=== PATIENT | female | born 1950 | race Native Hawaiian/Other Pacific Islander ===

== ENCOUNTER 2017-08-20 12:32 | Inpatient (IN) | payer OTHER, MEDICARE ==
--- NOTE | 2017-08-20 12:39 | C.PDOC ---
History Of Present Illness 66 Y/O FEMALE REFERRED BY DR. ARCE FOR NEW ONSET A-FLUTTER. PATIENT WITH INTERMITTENT PALPITATIONS FOR 1 WEEK WITH ASSOCIATED SOB AND GENERALIZED WEAKNESS. PER DR ARCE, PT HYPOTENSIVE ON INITIAL EVALUATION. DENIES ANY OTHER COMPLAINTS. EXAM MILD DISTRESS LUNGS CTA CV RRR TACHY SKIN COLD AND CLAMMY Time Seen by Provider: 08/20/17 12:38 Chief Complaint (Nursing): Palpitations History Per: Patient History/Exam Limitations: no limitations Onset/Duration Of Symptoms: Days Current Symptoms Are (Timing): Still Present Associated Symptoms: denies: Chest Pain, Headache Recent travel outside of the [place]: No Past Medical History Reviewed: Historical Data, Nursing Documentation, Vital Signs Family History: States: Unknown Family Hx Review Of Systems Except As Marked, All Systems Reviewed And Found Negative. Constitutional: Positive for: Weakness. Negative for: Fever, Chills Cardiovascular: Positive for: Palpitations. Negative for: Chest Pain Respiratory: Positive for: Shortness of Breath. Negative for: Wheezing Gastrointestinal: Negative for: Nausea, Vomiting, Abdominal Pain Skin: Negative for: Rash Neurological: Negative for: Headache, Dizziness Physical Exam - Physical Exam Appears: Non-toxic, Other (MILD DISTRESS) Skin: Other (COLD AND CLAMMY) Head: Atraumatic, Normacephalic Oral Mucosa: Moist Chest: Symmetrical Cardiovascular: Rhythm Regular (TACHY) Respiratory: Normal Breath Sounds, No Accessory Muscle Use, No Rales, No Rhonchi , No Wheezing Gastrointestinal/Abdominal: Soft, No Tenderness, No Guarding, No Rebound Back: Normal Inspection Extremity: Normal ROM, Capillary Refill (< 2 SEC.) Neurological/Psych: Oriented x3, Normal Speech, Normal Cognition ED Course And Treatment ECG: Interpreted By Me ECG Rhythm: Atrial Flutter ECG Interpretation: Abnormal Rate From EC Progress - Re-Evaluation Re-evaluation Note: 08/20/17 12:39 D/W DR ARCE WILL CONSULT. ADMIT PMD 08/20/17 12:41 CARDIZEM, IVFs GIVEN. LABS, EKG ORDERED AND REVIEWED. 08/20/17 12:49 D/W DR ZABALA AWARE OF ER FINDINGS WILL ADMIT. PENDING LABS - Data Reviewed Data Reviewed: Lab, Diagnostic imaging, EKG, Old records - Critical Care Citical Care: Excluding Proc Time Critical Care Time: 90 minutes - Continuity of Care Discussed patient case with:: Patient, PMD Discussed pt. case with business process consultant/specialty: Cardiology Disposition Counseled Patient/Family Regarding: Studies Performed, Diagnosis - Disposition Disposition: HOSPITALIZED Disposition Time: 12:54 Condition: STABLE Forms: [facility] (Portuguese) - POA Present On Arrival: None - Clinical Impression Clinical Impression: New onset atrial flutter, Hypotension, Atrial flutter with rapid ventricular response - Scribe Statement The provider has reviewed the documentation as recorded by the Scribe SM All medical record entries made by the Scribe were at my direction and personally dictated by me. I have reviewed the chart and agree that the record accurately reflects my personal performance of the history, physical exam, medical decision making, and the department course for this patient. I have also personally directed, reviewed, and agree with the discharge instructions and disposition. Decision To Admit - Pt Status Changed To: Hospital Disposition Of: Inpatient - Admit Certification Admit to Inpatient:: After my assessment, the patient will require hospitalization for at least two midnights. This is because of the severity of symptoms shown, intensity of services needed, and/or the medical risk in this patient being treated as an outpatient. - InPatient: Physician Admission Certification: I certify that this patient requires 2 or more midnights of care for the following reason:: SEE NOTE - . Bed Request Type: Telemetry Admitting Physician: No Watson Patient Diagnosis: New onset atrial flutter, Hypotension
[2017-08-20] MEDS ORDERED: Sodium Chloride 0.9% 500 ML IV ONE (12:41)
[2017-08-20] MEDS ORDERED: Sodium Chloride 0.9% 1,000 ML IV ONE (12:41)
[2017-08-20 13:06] LABS: EOS # 0.1 K/uL (0.0-0.7); EOS % 3.1 % (0.0-4.0); HEMATOCRIT 36.4 % (34.0-47.0); LYMPH # 1.5 K/uL (1.0-4.3); LYMPH % 35.3 % (20.0-40.0); MEAN CORPUSCULAR HEMOGLOBIN 30.2 pg (27.0-31.0); MEAN CORPUSCULAR HGB CONC 33.4 g/dL (33.0-37.0); MEAN PLATELET VOLUME 9.4 fL (7.2-11.7); MONO # 0.6 K/uL (0.0-0.8); MONO % 13.4 % (0.0-10.0); NRBC % 0.2 % (0.0-2.0); RED CELL DISTRIBUTION WIDTH 12.3 % (11.5-14.5); WHITE BLOOD COUNT 4.4 K/uL (4.8-10.8)
[2017-08-20 13:07] LABS: MEAN CELL VOLUME 90.4 fL (81.0-99.0)
[2017-08-20 13:11] LABS: CHLORIDE 108 mmol/L (98-107); POTASSIUM 3.8 mmol/L (3.6-5.2); SODIUM 144 mmol/L (132-148)
[2017-08-20 13:14] LABS: ALB/GLOB RATIO 1.1 (1.0-2.1); ALKALINE PHOSPHATASE 124 U/L (38-126); ALT/SGPT 67 U/L (9-52); AST/SGOT 67 U/L (14-36); BILIRUBIN,TOTAL 0.7 mg/dL (0.2-1.3); BLOOD UREA NITROGEN 14 mg/dL (7-17); CARBON DIOXIDE 25 mmol/L (22-30); GFR AFRICAN-AMERICAN > 60; GLUCOSE,RANDOM 135 mg/dL (65-105); TOTAL PROTEIN 6.9 g/dL (6.3-8.3)
[2017-08-20 13:15] LABS: CALCIUM 9.4 mg/dl (8.6-10.4)
[2017-08-20] MEDS ORDERED: Heparin25000 units/250ml 1/2NS 25,000 UNITS/250 ML BAG IV PRN ×4 (13:29→16:00)
--- NOTE | 2017-08-20 14:22 | RAD ---
PROCEDURE: CHEST RADIOGRAPH, 1 VIEW HISTORY: Palpations COMPARISON: None available. FINDINGS: LUNGS: The lungs are well inflated and clear. PLEURA: No pneumothorax or pleural fluid seen. CARDIOVASCULAR: Normal. OSSEOUS STRUCTURES: No significant abnormalities. VISUALIZED UPPER ABDOMEN: Normal. OTHER FINDINGS: None. IMPRESSION: No active pulmonary disease.
[2017-08-20 14:48] LABS: MAGNESIUM 1.7 mg/dL (1.6-2.3); PHOSPHOROUS 3.9 mg/dL (2.5-4.5)
[2017-08-20 15:20] LABS: THYROID STIMULATING HORMONE < 0.02 mIU/L (0.46-4.68)
--- NOTE | 2017-08-20 16:30 | CP.PCM.CON ---
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 Patient noticed increasing shortness of breath and left leg edema starting 3 weeks ago. She made an appointment with account underwriter Dr Malhotra who advised her to get an echo and ekg prior to appointment. Today patient was getting Echo and noticed palpitations, tremor and HR in 120s. An ekg was done which showed rhythm of A-Flutter. Patient then ran into Dr Malhotra on the floors and showed him the ekg strip, Dr Malhotra immediately directed patient to ED. In ED she received Cardizem 10mg ivp once. PMD: Dr Milan PMHx: HLD; Hep C (in remission w/o treatment) PSHx: denies Home Medications: atorvastatin 3x a week (does not take everyday due to myalgias ) Social: denies smoking, denies drinking FamHx: Father -> HTN, DM; Mother -> asthma Review of Systems - Constitutional Constitutional: Headache - EENT Eyes: absent: Blurred Vision - Cardiovascular Cardiovascular: absent: Chest Pain, Palpitations - Respiratory Respiratory: absent: Dyspnea, Wheezing - Gastrointestinal Gastrointestinal: absent: Bloating, Constipation, Diarrhea, Nausea - Genitourinary Genitourinary: absent: Difficulty Urinating, Dysuria - Musculoskeletal Musculoskeletal: absent: Arthralgias, Numbness - Integumentary Integumentary: absent: Rash - Neurological Neurological: Headaches. absent: Confusion, Dizziness Past Patient History - Past Medical History & Family History Past Medical History?: Yes - Past Social History Smoking Status: Never Smoked - CARDIAC Hx Cardiac Disorders: Yes Hx Hypercholesterolemia: Yes Hx Hypotension: Yes - PULMONARY Hx Respiratory Disorders: No - NEUROLOGICAL Hx Neurological Disorder: No - HEENT Hx HEENT Problems: No - RENAL Hx Chronic Kidney Disease: No - ENDOCRINE/METABOLIC Hx Endocrine Disorders: No - HEMATOLOGICAL/ONCOLOGICAL Hx Blood Disorders: Yes Hx Hepatitis C: Yes - INTEGUMENTARY Hx Dermatological Problems: No - MUSCULOSKELETAL/RHEUMATOLOGICAL Hx Musculoskeletal Disorders: No Hx Falls: No - GASTROINTESTINAL Hx Gastrointestinal Disorders: No - GENITOURINARY/GYNECOLOGICAL Hx Genitourinary Disorders: No - PSYCHIATRIC Hx Psychophysiologic Disorder: No Hx Substance Use: No - SURGICAL HISTORY Hx Surgeries: No - ANESTHESIA Hx Anesthesia: No Hx Anesthesia Reactions: No Hx Malignant Hyperthermia: No Has any member of the family had a problem w/ anesthesia?: No Meds Allergies/Adverse Reactions: Allergies Allergy/AdvReac Type Severity Reaction Status Date / Time No Known Allergies Allergy Verified 08/20/17 12:40 - Medications Medications: Current Medications Acetaminophen (Tylenol 325mg Tab) 650 mg PO Q6 PRN PRN Reason: Headache Diltiazem HCl 125 mg/ Dextrose 125 mls @ 5 mls/hr IV .Q24H [facility] PRN Reason: 5 MG/HR Last Admin: 08/20/17 14:57 Dose: 5 mls/hr Heparin Sodium/Sodium Chloride (Heparin 64950 Units/250ml 1/2 Normal Saline) 25 ,000 units in 250 mls @ 6.532 mls/hr IV .Q24H PRN; Protocol; 12 UNITS/KG/HR PRN Reason: PROTOCOL Pneumococcal Polyvalent Vaccine (Pneumovax 23 Vaccine) 0.5 ml IM .ONCE ONE Stop: 08/22/17 10:01 Physical Exam - Constitutional Appears: Well, Non-toxic, No Acute Distress - Head Exam Head Exam: ATRAUMATIC, NORMAL INSPECTION - Eye Exam Eye Exam: EOMI Pupil Exam: PERRL - ENT Exam ENT Exam: Mucous Membranes Moist - Respiratory Exam Respiratory Exam: Clear to Auscultation Bilateral. absent: Rales, Rhonchi, Wheezes - Cardiovascular Exam Cardiovascular Exam: Tachycardia, REGULAR RHYTHM, RRR, +S1, +S2 - GI/Abdominal Exam GI & Abdominal Exam: Normal Bowel Sounds, Soft. absent: Distended, Tenderness - Rectal Exam Rectal Exam: Deferred - Extremities Exam Extremities exam: Positive for: normal inspection, pedal edema. Negative for: calf tenderness - Neurological Exam Neurological exam: Alert, CN II-XII Intact, Normal Gait, Oriented x3 - Skin Skin Exam: Dry, Intact, Normal Color, Warm Results - Vital Signs Recent Vital Signs: Last Vital Signs Temp 98.4 F 08/20/17 14:30 Pulse 125 H 08/20/17 16:00 Resp 23 08/20/17 16:00 BP 118/74 08/20/17 15:14 Pulse Ox 96 08/20/17 16:00 - Labs Result Diagrams: 08/20/17 13:00 08/20/17 13:00 Labs: Laboratory Results - last 24 hr 08/20/17 08/20/17 08/20/17 13:00 13:00 13:00 WBC 4.4 L RBC 4.02 Hgb 12.2 Hct 36.4 MCV 90.4 D MCH 30.2 MCHC 33.4 RDW 12.3 Plt Count 170 MPV 9.4 Neut % (Auto) 47.2 L Lymph % (Auto) 35.3 [place] % (Auto) 13.4 H Eos % (Auto) 3.1 Baso % (Auto) 1.0 Neut # 2.1 Lymph # 1.5 [place] # 0.6 Eos # 0.1 Baso # 0.0 PT 11.8 INR 1.0 APTT 38 H Sodium 144 Potassium 3.8 Chloride 108 H Carbon Dioxide 25 Anion Gap 15 BUN 14 Creatinine 0.6 L Est GFR ( Amer) > 60 Est GFR (Non-Af Amer) > 60 Random Glucose 135 H Calcium 9.4 Phosphorus Magnesium Total Bilirubin 0.7 AST 67 H ALT 67 H D Alkaline Phosphatase 124 Troponin I < 0.0120 Total Protein 6.9 Albumin 3.7 Globulin 3.2 Albumin/Globulin Ratio 1.1 Thyroxine (T4) Total T3 TSH 3rd Generation 08/20/17 14:38 WBC RBC Hgb Hct MCV MCH MCHC RDW Plt Count MPV Neut % (Auto) Lymph % (Auto) [place] % (Auto) Eos % (Auto) Baso % (Auto) Neut # Lymph # [place] # Eos # Baso # PT INR APTT Sodium Potassium Chloride Carbon Dioxide Anion Gap BUN Creatinine Est GFR ( Amer) Est GFR (Non-Af Amer) Random Glucose Calcium Phosphorus 3.9 Magnesium 1.7 Total Bilirubin AST ALT Alkaline Phosphatase Troponin I Total Protein Albumin Globulin Albumin/Globulin Ratio Thyroxine (T4) 23.0 H Total T3 5.87 H TSH 3rd Generation < 0.02 L Assessment & Plan - Assessment and Plan (Free Text) Assessment: 66 year old F admitted to ICU from ED for A-Flutter. CV: new onset A-Flutter w/ RVR; hemodynamically stable Cardizem drip Heparin drip w/ bolus Troponin negative x1, f/u serial trops f/u lipid panel Endo: elevated T3, T4 Low TSH; T3, T4 elevated GI: elevated AST, ALT Prophylaxis: DVT: heparin drip Diet: Regular Diet GI: not indicated
--- NOTE | 2017-08-20 21:53 | CP.PCM.CON ---
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 Patient noticed increasing shortness of breath and left leg edema starting 3 weeks ago. Today patient was getting Echo and noticed palpitations, tremor and HR in 120s. An ekg was done which showed rhythm of A-Flutter. Patient then ran into me on the floors and showed him the ekg strip, I immediately directed patient to ED. In ED she received Cardizem 10mg ivp once. PMD: Dr Watson PMHx: HLD; Hep C (in remission w/o treatment) PSHx: denies Home Medications: atorvastatin 3x a week (does not take everyday due to myalgias ) Social: denies smoking, denies drinking FamHx: Father -> HTN, DM; Mother -> asthma Review of Systems - Constitutional Constitutional: Headache - EENT Eyes: absent: Blurred Vision - Cardiovascular Cardiovascular: absent: Chest Pain, Palpitations - Respiratory Respiratory: absent: Dyspnea, Wheezing - Gastrointestinal Gastrointestinal: absent: Bloating, Constipation, Diarrhea, Nausea - Genitourinary Genitourinary: absent: Difficulty Urinating, Dysuria - Musculoskeletal Musculoskeletal: absent: Arthralgias, Numbness - Integumentary Integumentary: absent: Rash - Neurological Neurological: Headaches. absent: Confusion, Dizziness Physical Exam - Constitutional Appears: Well, Non-toxic, No Acute Distress - Head Exam Head Exam: ATRAUMATIC, NORMAL INSPECTION - Eye Exam Eye Exam: EOMI Pupil Exam: PERRL - ENT Exam ENT Exam: Mucous Membranes Moist - Respiratory Exam Respiratory Exam: Clear to Auscultation Bilateral. absent: Rales, Rhonchi, Wheezes - Cardiovascular Exam Cardiovascular Exam: Tachycardia, REGULAR RHYTHM, RRR, +S1, +S2 - GI/Abdominal Exam GI & Abdominal Exam: Normal Bowel Sounds, Soft. absent: Distended, Tenderness - Rectal Exam Rectal Exam: Deferred - Extremities Exam Extremities exam: Positive for: normal inspection, pedal edema. Negative for: calf tenderness - Neurological Exam Neurological exam: Alert, CN II-XII Intact, Normal Gait, Oriented x3 - Skin Skin Exam: Dry, Intact, Normal Color, Warm Past Patient History - Past Medical History & Family History Past Medical History?: Yes - Past Social History Smoking Status: Never Smoked - CARDIAC Hx Cardiac Disorders: Yes Hx Hypercholesterolemia: Yes Hx Hypotension: Yes - PULMONARY Hx Respiratory Disorders: No - NEUROLOGICAL Hx Neurological Disorder: No - HEENT Hx HEENT Problems: No - RENAL Hx Chronic Kidney Disease: No - ENDOCRINE/METABOLIC Hx Endocrine Disorders: No - HEMATOLOGICAL/ONCOLOGICAL Hx Blood Disorders: Yes Hx Hepatitis C: Yes - INTEGUMENTARY Hx Dermatological Problems: No - MUSCULOSKELETAL/RHEUMATOLOGICAL Hx Musculoskeletal Disorders: No Hx Falls: No - GASTROINTESTINAL Hx Gastrointestinal Disorders: No - GENITOURINARY/GYNECOLOGICAL Hx Genitourinary Disorders: No - PSYCHIATRIC Hx Psychophysiologic Disorder: No Hx Substance Use: No - SURGICAL HISTORY Hx Surgeries: No - ANESTHESIA Hx Anesthesia: No Hx Anesthesia Reactions: No Hx Malignant Hyperthermia: No Has any member of the family had a problem w/ anesthesia?: No Meds Allergies/Adverse Reactions: Allergies Allergy/AdvReac Type Severity Reaction Status Date / Time No Known Allergies Allergy Verified 08/20/17 12:40 - Medications Medications: Current Medications Acetaminophen (Tylenol 325mg Tab) 650 mg PO Q6 PRN PRN Reason: Headache Diltiazem HCl 125 mg/ Dextrose 125 mls @ 5 mls/hr IV .Q24H [facility] PRN Reason: 5 MG/HR Last Admin: 08/20/17 14:57 Dose: 5 mls/hr Heparin Sodium/Sodium Chloride (Heparin 71709 Units/250ml 1/2 Normal Saline) 25 ,000 units in 250 mls @ 6.532 mls/hr IV .Q24H PRN; Protocol; 12 UNITS/KG/HR PRN Reason: PROTOCOL Methimazole (Tapazole) 20 mg PO TID [facility] Last Admin: 08/20/17 20:22 Dose: 20 mg Pneumococcal Polyvalent Vaccine (Pneumovax 23 Vaccine) 0.5 ml IM .ONCE ONE Stop: 08/22/17 10:01 Results - Vital Signs Recent Vital Signs: Last Vital Signs Temp 98.4 F 08/20/17 14:30 Pulse 92 H 08/20/17 21:00 Resp 18 08/20/17 21:00 BP 117/61 08/20/17 19:15 Pulse Ox 97 08/20/17 21:00 - Labs Result Diagrams: 08/22/17 06:26 08/22/17 06:26 Labs: Laboratory Results - last 24 hr 08/20/17 08/20/17 08/20/17 13:00 13:00 13:00 WBC 4.4 L RBC 4.02 Hgb 12.2 Hct 36.4 MCV 90.4 D MCH 30.2 MCHC 33.4 RDW 12.3 Plt Count 170 MPV 9.4 Neut % (Auto) 47.2 L Lymph % (Auto) 35.3 [place] % (Auto) 13.4 H Eos % (Auto) 3.1 Baso % (Auto) 1.0 Neut # 2.1 Lymph # 1.5 [place] # 0.6 Eos # 0.1 Baso # 0.0 PT 11.8 INR 1.0 APTT 38 H Sodium 144 Potassium 3.8 Chloride 108 H Carbon Dioxide 25 Anion Gap 15 BUN 14 Creatinine 0.6 L Est GFR ( Amer) > 60 Est GFR (Non-Af Amer) > 60 Random Glucose 135 H Calcium 9.4 Phosphorus Magnesium Total Bilirubin 0.7 AST 67 H ALT 67 H D Alkaline Phosphatase 124 Troponin I < 0.0120 Total Protein 6.9 Albumin 3.7 Globulin 3.2 Albumin/Globulin Ratio 1.1 Thyroxine (T4) Total T3 TSH 3rd Generation 08/20/17 08/20/17 08/20/17 14:38 21:09 21:09 WBC RBC Hgb Hct MCV MCH MCHC RDW Plt Count MPV Neut % (Auto) Lymph % (Auto) [place] % (Auto) Eos % (Auto) Baso % (Auto) Neut # Lymph # [place] # Eos # Baso # PT INR APTT 76 H D Sodium Potassium Chloride Carbon Dioxide Anion Gap BUN Creatinine Est GFR ( Amer) Est GFR (Non-Af Amer) Random Glucose Calcium Phosphorus 3.9 Magnesium 1.7 Total Bilirubin AST ALT Alkaline Phosphatase Troponin I 0.0130 Total Protein Albumin Globulin Albumin/Globulin Ratio Thyroxine (T4) 23.0 H Total T3 5.87 H TSH 3rd Generation < 0.02 L Assessment & Plan - Assessment and Plan (Free Text) Assessment: 66 year old F admitted to ICU from ED for A-Flutter/Fib. CV: new onset A-Flutter/Fib w/ RVR; hemodynamically stable Cardizem drip Heparin drip w/ bolus Troponin negative x1, f/u serial trops f/u lipid panel Endo: elevated T3, T4 Low TSH; T3, T4 elevated GI: elevated AST, ALT Prophylaxis: DVT: heparin drip Diet: Regular Diet GI: not indicated
[2017-08-21 03:39] LABS: BASO % 0.8 % (0.0-2.0); EOS # 0.2 K/uL (0.0-0.7); EOS % 4.2 % (0.0-4.0); HEMATOCRIT 34.1 % (34.0-47.0); LYMPH # 1.7 K/uL (1.0-4.3); LYMPH % 33.8 % (20.0-40.0); MEAN CELL VOLUME 89.9 fL (81.0-99.0); MEAN CORPUSCULAR HEMOGLOBIN 30.2 pg (27.0-31.0); MEAN CORPUSCULAR HGB CONC 33.6 g/dL (33.0-37.0); MEAN PLATELET VOLUME 9.9 fL (7.2-11.7); MONO # 0.6 K/uL (0.0-0.8); RED CELL DISTRIBUTION WIDTH 12.2 % (11.5-14.5)
[2017-08-21 03:57] LABS: CHOLESTEROL 97 mg/dL (0-199)
[2017-08-21 04:13] LABS: CHLORIDE 110 mmol/L (98-107)
[2017-08-21 04:14] LABS: POTASSIUM 3.3 mmol/L (3.6-5.2); SODIUM 143 mmol/L (132-148)
[2017-08-21 04:16] LABS: ALKALINE PHOSPHATASE 116 U/L (38-126); ALT/SGPT 60 U/L (9-52); AST/SGOT 51 U/L (14-36); BILIRUBIN,TOTAL 0.9 mg/dL (0.2-1.3); BLOOD UREA NITROGEN 9 mg/dL (7-17); CARBON DIOXIDE 24 mmol/L (22-30); GFR AFRICAN-AMERICAN > 60; TOTAL PROTEIN 6.1 g/dL (6.3-8.3)
[2017-08-21 04:17] LABS: CALCIUM 8.7 mg/dl (8.6-10.4); GLUCOSE,RANDOM 111 mg/dL (65-105)
[2017-08-21 04:34] LABS: T4 20.7 ug/dL (5.5-11.0)
[2017-08-21 04:47] LABS: CORTISOL AM 8.9 ug/dL (4.46-22.7); THYROID STIMULATING HORMONE < 0.02 mIU/L (0.46-4.68)
--- NOTE | 2017-08-21 07:07 | CON ---
ENDOCRINOLOGY CONSULT LOCATION: ICU room #9. HISTORY OF PRESENT ILLNESS: This is a 66-year-old female admitted with sudden onset of palpitations and progressive shortness of breath and evaluated to be in atrial fibrillation and flutter with rapid ventricular response and also supervening marked hyperthyroidism, is being referred now for endocrine evaluation and management. PAST MEDICAL HISTORY: As mentioned above. History of dyslipidemia, currently taking Lipitor at 10 mg every other day as noted. History of hepatitis C with no prior treatment. FAMILY HISTORY: Positive for diabetes and hypertension. SOCIAL HISTORY: The patient has a supportive family. 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 No known substance use. REVIEW OF SYSTEMS: Admits to an insidious onset of generalized body weakness, easy fatigability and tiredness and suboptimal energy level. Also admits to episodic bouts of headaches and dizziness and lightheadedness, worse on the day of admission. Also admits to sudden onset of precordial chest pain and palpitations with progressive shortness of breath, initially on exertion and then at rest with paroxysmal nocturnal dyspnea. Her oral intake has been variable with dyspepsia and hyperdefecation. Also admits to variable oral intake at this time. Moreover, admits to lower extremity swelling and edema. PHYSICAL EXAMINATION GENERAL: This is an average built female, in no apparent distress. VITAL SIGNS: Blood pressure of 118/70, pulse of 120 beats per minute and irregular, temperature 98, respirations 20. Height is 4 feet 11 inches, weight is 122 pounds. HEENT: Head is normocephalic. Eyes, anicteric with pink conjunctivae. Funduscopy not possible at this time. Ears, nose, and throat otherwise normal NECK: Supple. Thyroid gland shows firm thyromegaly which is nontender with no overt palpable nodule at this time with positive thyroid bruits. CHEST: Hyperdynamic precordium. CARDIOPULMONARY: S1 and S2 is rapid and irregular. LUNGS: Clear to auscultation. ABDOMEN: Flat and soft with positive bowel sounds. EXTREMITIES: +1 bipedal edema. Pulses are +2 bilaterally. LABORATORY DATA: The chemistry showed a BUN of 14, sodium 144, potassium 3.8, chloride 108, CO2 of 25, glucose 135, and creatinine 0.6. She has a slightly elevated transaminases. The thyroid level showed a T4 or thyroxine of 23.0 with a TSH of less than 0.02 and a total T3 of 5.87, troponin is less than 0.01, and albumin is 3.7. 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 PLAN OF MANAGEMENT: As discussed with the patient, the staff will start her right away on a high-dose supraphysiologic regimen of Tapazole given as 20 mg p.o. stat tonight followed by Tapazole given as 20 mg p.o. t.i.d. after meals as ordered. We will obtain serum chemistries and supplement accordingly as needed. We will also obtain thyroid medications, i.e., Tapazole as ordered. We will obtain a comprehensive thyroid hormonal profile with a total and free T4, TSH, and also a thyroid peroxidase antibody and a thyroid stimulating immunoglobulin with thyroglobulin panel which were confirmed and in the presence of underlying thyroid autoimmunity. We will also obtain a thyroid ultrasound to fully delineate a thyroid lobe dimensions. We will follow and advise accordingly. Svetlana Mercer MD
--- NOTE | 2017-08-21 08:56 | CP.PCM.HP ---
History of Present Illness - History of Present Illness History of Present Illness: Chief complaint: Flutter-like sensation. History present illness: 65-year-old female with no past medical history, suddenly developed onset of flutter-like sensation in the chest area. She does not have any pain other chest pain. But she claims that the for almost a week she was having slowly worsening shortness of breath, even with a regular activities causes increasing SOB. Some leg swelling also noted. Denies any dizziness, sleeping is not disturbed. Some minimal weight gain also noted. No nausea vomiting or other GI symptoms. Past medical history: Hypertension. Allergies no known drug allergy. 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 Family history noncontributory. Review of systems: Patient is currently having no headache or visual symptoms name of palpitation in the chest, no GI symptoms. Minimal leg swelling noted. 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 Labs reviewed. EKG showing evidence of atrial flutter and fibrillation. Rapid ventricular rate noted. Thyroid hormone abnormality noted. Assessment/recommendation: 66-year-old female, now admitted with a slowly worsening SOB, secondary to possibly atrial flutter and fibrillation. Underlying hormonal condition cannot be ruled out. Endocrinology evaluation, cardiology avulsion. Echocardiogram. Patient is currently on heparin drip Will follow the patient. Present on Admission - Present on Admission Any Indicators Present on Admission: No History of DVT/PE: No History of Uncontrolled Diabetes: No Urinary Catheter: No Decubitus Ulcer Present: No Past Patient History - Past Medical History & Family History Past Medical History?: Yes - Past Social History Smoking Status: Never Smoked - CARDIAC Hx Cardiac Disorders: Yes Hx Hypercholesterolemia: Yes Hx Hypotension: Yes - PULMONARY Hx Respiratory Disorders: No - NEUROLOGICAL Hx Neurological Disorder: No - HEENT Hx HEENT Problems: No - RENAL Hx Chronic Kidney Disease: No - ENDOCRINE/METABOLIC Hx Endocrine Disorders: No - HEMATOLOGICAL/ONCOLOGICAL Hx Blood Disorders: Yes Hx Hepatitis C: Yes - INTEGUMENTARY Hx Dermatological Problems: No - MUSCULOSKELETAL/RHEUMATOLOGICAL Hx Musculoskeletal Disorders: No Hx Falls: No - GASTROINTESTINAL Hx Gastrointestinal Disorders: No - GENITOURINARY/GYNECOLOGICAL Hx Genitourinary Disorders: No - PSYCHIATRIC Hx Psychophysiologic Disorder: No Hx Substance Use: No - SURGICAL HISTORY Hx Surgeries: No - ANESTHESIA Hx Anesthesia: No Hx Anesthesia Reactions: No Hx Malignant Hyperthermia: No Has any member of the family had a problem w/ anesthesia?: No Meds Allergies/Adverse Reactions: Allergies Allergy/AdvReac Type Severity Reaction Status Date / Time No Known Allergies Allergy Verified 08/20/17 12:40 Results - Vital Signs Recent Vital Signs: Last Vital Signs Temp 98.5 F 08/21/17 08:00 Pulse 118 H 08/21/17 08:00 Resp 30 H 08/21/17 08:00 BP 93/64 L 08/21/17 07:35 Pulse Ox 96 08/21/17 08:00 - Labs Result Diagrams: 08/21/17 03:33 08/21/17 03:33 Labs: Laboratory Results - last 24 hr 08/20/17 08/20/17 08/20/17 13:00 13:00 13:00 WBC 4.4 L RBC 4.02 Hgb 12.2 Hct 36.4 MCV 90.4 D MCH 30.2 MCHC 33.4 RDW 12.3 Plt Count 170 MPV 9.4 Neut % (Auto) 47.2 L Lymph % (Auto) 35.3 [place] % (Auto) 13.4 H Eos % (Auto) 3.1 Baso % (Auto) 1.0 Neut # 2.1 Lymph # 1.5 [place] # 0.6 Eos # 0.1 Baso # 0.0 PT 11.8 INR 1.0 APTT 38 H Sodium 144 Potassium 3.8 Chloride 108 H Carbon Dioxide 25 Anion Gap 15 BUN 14 Creatinine 0.6 L Est GFR ( Amer) > 60 Est GFR (Non-Af Amer) > 60 Random Glucose 135 H Hemoglobin A1c Calcium 9.4 Phosphorus Magnesium Total Bilirubin 0.7 GGT AST 67 H ALT 67 H D Alkaline Phosphatase 124 Troponin I < 0.0120 Total Protein 6.9 Albumin 3.7 Globulin 3.2 Albumin/Globulin Ratio 1.1 Triglycerides Cholesterol LDL Cholesterol Direct HDL Cholesterol Free T4 Thyroxine (T4) Total T3 TSH 3rd Generation Cortisol AM Sample 08/20/17 08/20/17 08/20/17 14:38 21:09 21:09 WBC RBC Hgb Hct MCV MCH MCHC RDW Plt Count MPV Neut % (Auto) Lymph % (Auto) [place] % (Auto) Eos % (Auto) Baso % (Auto) Neut # Lymph # [place] # Eos # Baso # PT INR APTT 76 H D Sodium Potassium Chloride Carbon Dioxide Anion Gap BUN Creatinine Est GFR ( Amer) Est GFR (Non-Af Amer) Random Glucose Hemoglobin A1c Calcium Phosphorus 3.9 Magnesium 1.7 Total Bilirubin GGT AST ALT Alkaline Phosphatase Troponin I 0.0130 Total Protein Albumin Globulin Albumin/Globulin Ratio Triglycerides Cholesterol LDL Cholesterol Direct HDL Cholesterol Free T4 Thyroxine (T4) 23.0 H Total T3 5.87 H TSH 3rd Generation < 0.02 L Cortisol AM Sample 08/21/17 08/21/17 08/21/17 03:33 03:33 03:33 WBC RBC Hgb Hct MCV MCH MCHC RDW Plt Count MPV Neut % (Auto) Lymph % (Auto) [place] % (Auto) Eos % (Auto) Baso % (Auto) Neut # Lymph # [place] # Eos # Baso # PT INR APTT Sodium 143 Potassium 3.3 L Chloride 110 H Carbon Dioxide 24 Anion Gap 12 BUN 9 Creatinine 0.5 L Est GFR ( Amer) > 60 Est GFR (Non-Af Amer) > 60 Random Glucose 111 H Hemoglobin A1c Calcium 8.7 Phosphorus Magnesium Total Bilirubin 0.9 GGT 81 H AST 51 H D ALT 60 H Alkaline Phosphatase 116 Troponin I Total Protein 6.1 L Albumin 3.0 L Globulin 3.0 Albumin/Globulin Ratio 1.0 Triglycerides 91 D Cholesterol 97 LDL Cholesterol Direct 53 HDL Cholesterol 40 Free T4 5.21 H Thyroxine (T4) 20.7 H Total T3 TSH 3rd Generation < 0.02 L Cortisol AM Sample 8.9 08/21/17 08/21/17 08/21/17 03:33 03:33 03:33 WBC 5.0 RBC 3.80 Hgb 11.5 Hct 34.1 MCV 89.9 MCH 30.2 MCHC 33.6 RDW 12.2 Plt Count 160 MPV 9.9 Neut % (Auto) 49.2 L Lymph % (Auto) 33.8 [place] % (Auto) 12.0 H Eos % (Auto) 4.2 H Baso % (Auto) 0.8 Neut # 2.4 Lymph # 1.7 [place] # 0.6 Eos # 0.2 Baso # 0.0 PT INR APTT 73 H Sodium Potassium Chloride Carbon Dioxide Anion Gap BUN Creatinine Est GFR ( Amer) Est GFR (Non-Af Amer) Random Glucose Hemoglobin A1c 5.6 Calcium Phosphorus Magnesium Total Bilirubin GGT AST ALT Alkaline Phosphatase Troponin I Total Protein Albumin Globulin Albumin/Globulin Ratio Triglycerides Cholesterol LDL Cholesterol Direct HDL Cholesterol Free T4 Thyroxine (T4) Total T3 TSH 3rd Generation Cortisol AM Sample
--- NOTE | 2017-08-21 08:58 | CP.PCM.PN ---
Subjective - Date & Time of Evaluation Date of Evaluation: 08/21/17 Time of Evaluation: 08:57 - Subjective Subjective: Patient now doing much better. The latest elevated. No chest pain. Denies any nausea vomiting. Receiving Cardizem drip 5 mg. Also receiving heparin . On examination: HEENT PERRLA, neck supple No thyromegaly was noted and no cervical adenopathy noted Chest bilateral good air entry, no wheezing or rales noted CVS regular heart sound, no murmur Abdomen soft and no organomegaly Extremities no pedal edema, no leg swelling, pedal pulses are good. 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 Leg edema, 1+ noted. Assessment and recommendation: 66 female admitted with the atrial fibrillation. Likely thyrotoxicosis. On Tapazole, and added propranolol. Will taper down the Cardizem. Cardiology and gynecology followup, out of bed to chair will follow the patient. Objective - Vital Signs/Intake and Output Vital Signs (last 24 hours): Temp Pulse Resp BP Pulse Ox 98.5 F 118 H 30 H 93/64 L 96 08/21/17 08:00 08/21/17 08:00 08/21/17 08:00 08/21/17 07:35 08/21/17 08:00 Intake and Output: 08/21/17 08/21/17 06:59 18:59 Intake Total 183.0 143.0 Output Total 750 200 Balance -567.0 -57.0 - Medications Medications: Current Medications Acetaminophen (Tylenol 325mg Tab) 650 mg PO Q6 PRN PRN Reason: Headache Heparin Sodium/Sodium Chloride (Heparin 35562 Units/250ml 1/2 Normal Saline) 25 ,000 units in 250 mls @ 6.532 mls/hr IV .Q24H PRN; Protocol; 12 UNITS/KG/HR PRN Reason: PROTOCOL Diltiazem HCl 125 mg/ Dextrose 125 mls @ 5 mls/hr IV .Q24H [facility]; 5 MG/HR PRN Reason: Protocol Methimazole (Tapazole) 20 mg PO TID [facility] Last Admin: 08/20/17 20:22 Dose: 20 mg Pneumococcal Polyvalent Vaccine (Pneumovax 23 Vaccine) 0.5 ml IM .ONCE ONE Stop: 08/22/17 10:01 - Labs Labs: 08/21/17 03:33 08/21/17 03:33 PT 11.8 SECONDS (9.7-12.2) 08/20/17 13:00 INR 1.0 08/20/17 13:00 APTT 73 SECONDS (21-34) H 08/21/17 03:33
[2017-08-21] MEDS ORDERED: diltiaZEM 300 mg/24 Hours CD Cap PO SCH (10:45)
[2017-08-21] MEDS: Potassium Chloride 20 mEq ER Tab PO SCH (11:46)
--- NOTE | 2017-08-21 12:24 | CP.PCM.PN ---
<Lamonte Auguste - Last Filed: 08/21/17 13:18> Subjective - Date & Time of Evaluation Date of Evaluation: 08/21/17 Time of Evaluation: 10:15 - Subjective Subjective: Resident Progress Note for Dr. Malhotra Patient seen and examined at bedside. No acute events reported overnight. Patient is resting in bed comfortably, stating that her SOB and palpitations have resolved. Patient currently complains of feeling hot even with the AC on in the morning. Patient denies having headache, weakness, chills, chest pain, abdominal pain, or diarrhea. Objective - Vital Signs/Intake and Output Vital Signs (last 24 hours): Temp Pulse Resp BP Pulse Ox 98.5 F 76 16 95/46 L 96 08/21/17 08:00 08/21/17 11:04 08/21/17 11:04 08/21/17 11:04 08/21/17 11:04 Intake and Output: 08/21/17 08/21/17 06:59 18:59 Intake Total 183.0 387.5 Output Total 750 200 Balance -567.0 187.5 - Medications Medications: Current Medications Acetaminophen (Tylenol 325mg Tab) 650 mg PO Q6 PRN PRN Reason: Headache Diltiazem HCl (Cardizem Cd) 300 mg PO DAILY [facility] Heparin Sodium/Sodium Chloride (Heparin 96984 Units/250ml 1/2 Normal Saline) 25 ,000 units in 250 mls @ 6.532 mls/hr IV .Q24H PRN; Protocol; 12 UNITS/KG/HR PRN Reason: PROTOCOL Methimazole (Tapazole) 20 mg PO TID [facility] Last Admin: 08/21/17 09:39 Dose: 20 mg Pneumococcal Polyvalent Vaccine (Pneumovax 23 Vaccine) 0.5 ml IM .ONCE ONE Stop: 08/22/17 10:01 Potassium Chloride (K-Dur 20 Meq Er Tab) 20 meq PO DAILY [facility] Last Admin: 08/21/17 11:46 Dose: 20 meq Propranolol HCl (Inderal) 10 mg PO TID [facility] Last Admin: 08/21/17 09:38 Dose: 10 mg - Labs Labs: 08/21/17 03:33 08/21/17 03:33 PT 11.8 SECONDS (9.7-12.2) 08/20/17 13:00 INR 1.0 08/20/17 13:00 APTT 73 SECONDS (21-34) H 08/21/17 03:33 - Constitutional Appears: Well, Non-toxic, No Acute Distress - Head Exam Head Exam: ATRAUMATIC, NORMAL INSPECTION - Eye Exam Eye Exam: EOMI, Normal appearance - ENT Exam ENT Exam: Mucous Membranes Moist Additional comments: thyroid nontender, slight thyromeglay, no erythema appreciated - Neck Exam Neck Exam: Thyromegaly. absent: Lymphadenopathy, Tenderness - Respiratory Exam Respiratory Exam: Clear to Ausculation Bilateral, NORMAL BREATHING PATTERN. absent: Respiratory Distress - Cardiovascular Exam Cardiovascular Exam: Irregular Rhythm, +S1, +S2. absent: REGULAR RHYTHM, Murmur - GI/Abdominal Exam GI & Abdominal Exam: Soft, Normal Bowel Sounds. absent: Tenderness - Extremities Exam Extremities Exam: Normal Capillary Refill, Pedal Edema (trace LE edema). absent : Joint Swelling - Neurological Exam Neurological Exam: Alert, Awake, Oriented x3 - Psychiatric Exam Psychiatric exam: Normal Affect, Normal Mood - Skin Skin Exam: Normal Color, Warm Assessment and Plan - Assessment and Plan (Free Text) Plan: Atrial fibrillation -Patient's SOB and palpitations resolved -Hemadynamically stable -Continue cardizem and heparin -CHADS-VASc Score >2 (age, sex) -Will need to be on oral anticoagulation therapy upon discharge -Cardioversion in one month once thyroid condition stabilizes Hyperthyroidism -Follow endocrinology recommendations -Continue methimazole Case discussed with attending Dr. Malhotra <Naif Malhotra - Last Filed: 08/23/17 07:09> Objective - Vital Signs/Intake and Output Vital Signs (last 24 hours): Temp Pulse Resp BP Pulse Ox 98 F 68 21 97/35 L 98 08/23/17 04:00 08/23/17 04:00 08/23/17 04:00 08/23/17 03:38 08/22/17 04:00 Intake and Output: 08/23/17 08/23/17 06:59 18:59 Intake Total 100 Balance 100 - Medications Medications: Current Medications Acetaminophen (Tylenol 325mg Tab) 650 mg PO Q6 PRN PRN Reason: Headache Apixaban (Eliquis) 5 mg PO BID [facility] Last Admin: 08/22/17 17:58 Dose: 5 mg Methimazole (Tapazole) 20 mg PO TID [facility] Last Admin: 08/22/17 17:59 Dose: 20 mg Potassium Chloride (K-Dur 20 Meq Er Tab) 20 meq PO DAILY [facility] Last Admin: 08/22/17 09:18 Dose: 20 meq Propranolol HCl (Inderal) 20 mg PO TID [facility] Last Admin: 08/22/17 17:58 Dose: 20 mg - Labs Labs: 08/22/17 06:26 08/22/17 06:26 PT 11.8 SECONDS (9.7-12.2) 08/20/17 13:00 INR 1.0 08/20/17 13:00 APTT 73 SECONDS (21-34) H 08/21/17 03:33 Assessment and Plan - Assessment and Plan (Free Text) Plan: Patient seen and evaluated with the Horse Stud Manager. Plan of care as above
--- NOTE | 2017-08-21 17:30 | PN ---
ENDOCRINOLOGY FOLLOWUP NOTE LOCATION: ICU, room #9. This is a 66-year-old female with overt thyrotoxicosis, presenting here with rapid atrial fibrillation and flutter and is now being followed closely for metabolic management. She admits to episodic bouts of dizziness and lightheadedness with initial presentation of progressive shortness of breath that has subsided at this time in the ICU. She continues to have high-normal heart rates of 110 to 115 beats per minute as noted. Her blood pressure levels have improved accordingly as noted. The latest thyroid studies today did show the T4 of 20.7 mcg/dL with the free T4 of 5.21 and a TSH of less than 0.02 as noted. Her chemistry showed a BUN of 9, sodium 143, potassium 3.3, chloride 110, CO2 of 24, glucose 111 and creatinine 0.5. Her hemoglobin A1c is 5.6%. She also has elevated liver transaminases as noted, which is also expected with marked hyperthyroidism, as noted. ASSESSMENT: This is a 66-year-old female with marked hyperthyroidism, both historically, clinically and by chemically, most likely related to underlying autoimmune thyroiditis, i.e., Graves disease. She also exhibits very mild thyroid orbitopathy with a positive stare in both eyes as noted. She also has a very small underlying diffuse, toxic goiter with no overt neck obstructive or compressive symptoms. PLAN OF MANAGEMENT: As discussed with the patient at this time, we will continue the high dose, supra-pharmacologic dosing of Tapazole, given as 20 mg p.o. t.i.d. after meals as ordered to allow for dose equilibration. We will also obtain a thyroid ultrasound once she is taken out of ICU to fully delineate the thyroid lobe dimensions. We will await the report of the thyroid antibodies which will confirm and the presence of thyroid autoimmunity. The plan care has been discussed with the patient and gave her the therapeutic option with medical therapy versus radioactive iodine ablation therapy. We will follow and advise accordingly. Svetlana Mercer MD
[2017-08-22 04:18] VITALS: O2SAT 98
[2017-08-22 06:36] LABS: BASO # 0.1 K/uL (0.0-0.2); BASO % 1.5 % (0.0-2.0); EOS # 0.2 K/uL (0.0-0.7); EOS % 5.5 % (0.0-4.0); HEMATOCRIT 35.2 % (34.0-47.0); LYMPH # 1.4 K/uL (1.0-4.3); LYMPH % 37.7 % (20.0-40.0); MEAN CELL VOLUME 90.6 fL (81.0-99.0); MEAN CORPUSCULAR HEMOGLOBIN 30.4 pg (27.0-31.0); MEAN CORPUSCULAR HGB CONC 33.5 g/dL (33.0-37.0); MEAN PLATELET VOLUME 9.9 fL (7.2-11.7); MONO # 0.5 K/uL (0.0-0.8); NRBC % 0.1 % (0.0-2.0); RED CELL DISTRIBUTION WIDTH 12.3 % (11.5-14.5); WHITE BLOOD COUNT 3.6 K/uL (4.8-10.8)
[2017-08-22 06:55] LABS: ALB/GLOB RATIO 1.1 (1.0-2.1); ALKALINE PHOSPHATASE 107 U/L (38-126); ALT/SGPT 54 U/L (9-52); AST/SGOT 40 U/L (14-36); BILIRUBIN,TOTAL 0.8 mg/dL (0.2-1.3); BLOOD UREA NITROGEN 9 mg/dL (7-17); CALCIUM 9.4 mg/dl (8.6-10.4); CARBON DIOXIDE 24 mmol/L (22-30); CHLORIDE 108 mmol/L (98-107); GFR AFRICAN-AMERICAN > 60; GLUCOSE,RANDOM 92 mg/dL (65-105); MAGNESIUM 1.7 mg/dL (1.6-2.3); PHOSPHOROUS 3.8 mg/dL (2.5-4.5); POTASSIUM 3.7 mmol/L (3.6-5.2); SODIUM 140 mmol/L (132-148); TOTAL PROTEIN 5.8 g/dL (6.3-8.3)
[2017-08-22 07:04] LABS: T4 20.5 ug/dL (5.5-11.0)
[2017-08-22 07:18] LABS: THYROID STIMULATING HORMONE < 0.02 mIU/L (0.46-4.68)
[2017-08-22] MEDS: Potassium Chloride 20 mEq ER Tab PO SCH (09:18)
[2017-08-22] MEDS ORDERED: Influenza Virus Vaccine 45 mcg/0.5 ml Syr IM ONE (10:00)
[2017-08-22] MEDS ORDERED: Pneumococcal 23-Valent Vaccine IM ONE (10:00)
--- NOTE | 2017-08-22 13:18 | CP.PCM.PN ---
<Lamonte Auguste - Last Filed: 08/22/17 13:09> Subjective - Date & Time of Evaluation Date of Evaluation: 08/22/17 Time of Evaluation: 10:00 - Subjective Subjective: Resident Progress Note for Dr. Malhotra Patient seen and examined at bedside. No acute events reported overnight. Patient sitting up in bed comfortably playing crossword puzzles. Patient is aware of her treatment plan. Patient denies headache, fever, chills, shortness of breath, chest pain, nausea, vomiting, or diarrhea. Objective - Vital Signs/Intake and Output Vital Signs (last 24 hours): Temp Pulse Resp BP Pulse Ox 98.2 F 103 H 16 118/61 98 08/22/17 12:00 08/22/17 11:00 08/22/17 11:00 08/22/17 09:40 08/22/17 04:00 Intake and Output: 08/22/17 08/22/17 06:59 18:59 Intake Total 240 0 Output Total 300 Balance -60 0 - Medications Medications: Current Medications Acetaminophen (Tylenol 325mg Tab) 650 mg PO Q6 PRN PRN Reason: Headache Apixaban (Eliquis) 5 mg PO BID [facility] Last Admin: 08/22/17 09:19 Dose: 5 mg Methimazole (Tapazole) 20 mg PO TID [facility] Last Admin: 08/22/17 09:19 Dose: 20 mg Potassium Chloride (K-Dur 20 Meq Er Tab) 20 meq PO DAILY [facility] Last Admin: 08/22/17 09:18 Dose: 20 meq Propranolol HCl (Inderal) 20 mg PO TID [facility] Last Admin: 08/22/17 09:20 Dose: 20 mg - Labs Labs: 08/22/17 06:26 08/22/17 06:26 PT 11.8 SECONDS (9.7-12.2) 08/20/17 13:00 INR 1.0 08/20/17 13:00 APTT 73 SECONDS (21-34) H 08/21/17 03:33 - Constitutional Appears: Well, Non-toxic, No Acute Distress - Head Exam Head Exam: ATRAUMATIC, NORMAL INSPECTION - Eye Exam Eye Exam: Normal appearance - ENT Exam ENT Exam: Mucous Membranes Moist - Neck Exam Additional comments: thyroid nontender, slight thyromeglay, no erythema appreciated - Respiratory Exam Respiratory Exam: Clear to Ausculation Bilateral, NORMAL BREATHING PATTERN. absent: Respiratory Distress - Cardiovascular Exam Cardiovascular Exam: +S1, +S2 - GI/Abdominal Exam GI & Abdominal Exam: Soft, Normal Bowel Sounds. absent: Tenderness - Extremities Exam Extremities Exam: Full ROM, Normal Capillary Refill, Normal Inspection. absent : Joint Swelling, Pedal Edema - Neurological Exam Neurological Exam: Alert, Awake, Oriented x3 - Psychiatric Exam Psychiatric exam: Normal Affect, Normal Mood - Skin Skin Exam: Dry, Intact, Normal Color, Warm Assessment and Plan - Assessment and Plan (Free Text) Assessment: Atrial fibrillation -Patient's SOB and palpitations resolved -Hemodynamically stable -Continue Inderal 20mg TID and heparin -CHADS-VASc Score >2 (age, sex) -Will need to be on oral anticoagulation therapy upon discharge -Cardioversion in one month once thyroid condition stabilizes Hyperthyroidism -Follow endocrinology recommendations -Continue methimazole Case discussed with attending Dr. Malhotra <Naif Malhotra - Last Filed: 08/23/17 07:10> Objective - Vital Signs/Intake and Output Vital Signs (last 24 hours): Temp Pulse Resp BP Pulse Ox 98 F 68 21 97/35 L 98 08/23/17 04:00 08/23/17 04:00 08/23/17 04:00 08/23/17 03:38 08/22/17 04:00 Intake and Output: 08/23/17 08/23/17 06:59 18:59 Intake Total 100 Balance 100 - Medications Medications: Current Medications Acetaminophen (Tylenol 325mg Tab) 650 mg PO Q6 PRN PRN Reason: Headache Apixaban (Eliquis) 5 mg PO BID [facility] Last Admin: 08/22/17 17:58 Dose: 5 mg Methimazole (Tapazole) 20 mg PO TID [facility] Last Admin: 08/22/17 17:59 Dose: 20 mg Potassium Chloride (K-Dur 20 Meq Er Tab) 20 meq PO DAILY [facility] Last Admin: 08/22/17 09:18 Dose: 20 meq Propranolol HCl (Inderal) 20 mg PO TID [facility] Last Admin: 08/22/17 17:58 Dose: 20 mg - Labs Labs: 08/22/17 06:26 08/22/17 06:26 PT 11.8 SECONDS (9.7-12.2) 08/20/17 13:00 INR 1.0 08/20/17 13:00 APTT 73 SECONDS (21-34) H 08/21/17 03:33 Assessment and Plan - Assessment and Plan (Free Text) Plan: Patient seen and evaluated with the presidential helicopter crew chief Plan of care as above
--- NOTE | 2017-08-22 13:28 | US ---
HISTORY: Diffuse Toxic Goiter/Hyperthyroidism TECHNIQUE: Sonographic evaluation of the thyroid gland. COMPARISON: None. FINDINGS: RIGHT LOBE: Measures 1.4 x 1.6 x 4.3 cm. Heterogeneous, hypervascular right lobe. Nodules: None LEFT LOBE: Measures 1.4 x 1.5 x 4.9 cm. Heterogeneous, hypervascular left lobe. Nodules: None ISTHMUS: Measures 0.17 cm. Nodules: None OTHER FINDINGS: None . IMPRESSION: Normal size gland heterogeneous echo characteristics, hypervascularity noted bilaterally which is approximately symmetrical. No discrete thyroid nodules.
--- NOTE | 2017-08-22 14:17 | CP.PCM.PN ---
Subjective - Date & Time of Evaluation Date of Evaluation: 08/22/17 Time of Evaluation: 14:15 - Subjective Subjective: Patient is still having episodes of tachycardia. Patient was seen by endocrinology, cardiology today. Able to ambulation, and no distress. Eating well. No chest pain or shortness of breath. On examination: HEENT PERRLA, neck supple No thyromegaly was noted and no cervical adenopathy noted Chest bilateral good air entry, no wheezing or rales noted CVS regular heart sound, no murmur Abdomen soft and no organomegaly Extremities no pedal edema, no leg swelling, pedal pulses are good. 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 Mild tachycardia noted, atrial fibrillation still noted. Medication adjusted. Assessment and recommendation: 66-year-old female with new onset atrial fibrillation possibly likely secondary to thyrotoxicosis, on treatment. Will continue the current treatment. On anticoagulation. Possible discharge plan tomorrow. Most likely patient will need anticoagulation for now, if there is no sinus commotion patient may need cardioversion. Will follow the patient Objective - Vital Signs/Intake and Output Vital Signs (last 24 hours): Temp Pulse Resp BP Pulse Ox 98.2 F 103 H 16 118/61 98 08/22/17 12:00 08/22/17 11:00 08/22/17 11:00 08/22/17 09:40 08/22/17 04:00 Intake and Output: 08/22/17 08/22/17 06:59 18:59 Intake Total 240 0 Output Total 300 Balance -60 0 - Medications Medications: Current Medications Acetaminophen (Tylenol 325mg Tab) 650 mg PO Q6 PRN PRN Reason: Headache Apixaban (Eliquis) 5 mg PO BID [facility] Last Admin: 08/22/17 09:19 Dose: 5 mg Methimazole (Tapazole) 20 mg PO TID [facility] Last Admin: 08/22/17 13:55 Dose: 20 mg Potassium Chloride (K-Dur 20 Meq Er Tab) 20 meq PO DAILY [facility] Last Admin: 08/22/17 09:18 Dose: 20 meq Propranolol HCl (Inderal) 20 mg PO TID [facility] Last Admin: 08/22/17 13:54 Dose: 20 mg - Labs Labs: 08/22/17 06:26 08/22/17 06:26 PT 11.8 SECONDS (9.7-12.2) 08/20/17 13:00 INR 1.0 08/20/17 13:00 APTT 73 SECONDS (21-34) H 08/21/17 03:33
--- NOTE | 2017-08-23 01:56 | PN ---
ENDO FOLLOWUP NOTE DATE: LOCATION: In ICU room 9. SUBJECTIVE: This is a 66-year-old female with overt thyrotoxicosis, presenting here with marked hyperthyroidism, both historically, clinically and biochemically as noted thereof. Her overall energy level is much improved at this time with enhanced sense of well being after the initiation of both medical therapy with thiourea. Her repeat chemistries showed a BUN of 9, sodium 140, potassium 3.7, chloride 108, CO2 24, glucose 92 and creatinine 0.5. Her hemoglobin A1c is 5.6 with a creatinine of 0.5. So at this time, we will consider the addition of long acting beta eliazar for outpatient use with Inderal given as inpatient to 20 mg t.i.d. and will switch over upon discharge to a longer acting Inderal LA at 60 mg for starter. We will follow and advise accordingly. Svetlana Mercer MD
[2017-08-23 04:35] VITALS: TEMP 98
[2017-08-23 08:15] VITALS: BP 108/38
[2017-08-23 09:12] VITALS: PULSE 72; RESP 20
[2017-08-23] MEDS: Potassium Chloride 20 mEq ER Tab PO SCH (09:58)
--- NOTE | 2017-08-23 12:04 | CP.PCM.DIS ---
Provider - Provider Date of Admission: 08/20/17 12:54 Attending physician: No Watson MD Hospital Course - Lab Results Lab Results: Micro Results 08/20/17 14:00 Nose MRSA Culture (Admit) - Final MRSA NOT DETECTED Most Recent Lab Values WBC 3.6 K/uL (4.8-10.8) L 08/22/17 06:26 RBC 3.88 Mil/uL (3.80-5.20) 08/22/17 06:26 Hgb 11.8 g/dL (11.0-16.0) 08/22/17 06:26 Hct 35.2 % (34.0-47.0) 08/22/17 06:26 MCV 90.6 fL (81.0-99.0) 08/22/17 06:26 MCH 30.4 pg (27.0-31.0) 08/22/17 06:26 MCHC 33.5 g/dL (33.0-37.0) 08/22/17 06:26 RDW 12.3 % (11.5-14.5) 08/22/17 06:26 Plt Count 171 K/uL (130-400) 08/22/17 06:26 MPV 9.9 fL (7.2-11.7) 08/22/17 06:26 Neut % (Auto) 42.3 % (50.0-75.0) L 08/22/17 06:26 Lymph % (Auto) 37.7 % (20.0-40.0) 08/22/17 06:26 Sargent % (Auto) 13.0 % (0.0-10.0) H 08/22/17 06:26 Eos % (Auto) 5.5 % (0.0-4.0) H 08/22/17 06:26 Baso % (Auto) 1.5 % (0.0-2.0) 08/22/17 06:26 Neut # 1.5 K/uL (1.8-7.0) L 08/22/17 06:26 Lymph # 1.4 K/uL (1.0-4.3) 08/22/17 06:26 Sargent # 0.5 K/uL (0.0-0.8) 08/22/17 06:26 Eos # 0.2 K/uL (0.0-0.7) 08/22/17 06:26 Baso # 0.1 K/uL (0.0-0.2) 08/22/17 06:26 PT 11.8 SECONDS (9.7-12.2) 08/20/17 13:00 INR 1.0 08/20/17 13:00 APTT 73 SECONDS (21-34) H 08/21/17 03:33 Sodium 140 mmol/L (132-148) 08/22/17 06:26 Potassium 3.7 mmol/L (3.6-5.2) 08/22/17 06:26 Chloride 108 mmol/L (98-107) H 08/22/17 06:26 Carbon Dioxide 24 mmol/L (22-30) 08/22/17 06:26 Anion Gap 12 (10-20) 08/22/17 06:26 BUN 9 mg/dL (7-17) 08/22/17 06:26 Creatinine 0.5 MG/DL (0.7-1.2) L 08/22/17 06:26 Est GFR ( Amer) > 60 08/22/17 06:26 Est GFR (Non-Af Amer) > 60 08/22/17 06:26 Random Glucose 92 mg/dL (65-105) 08/22/17 06:26 Hemoglobin A1c 5.6 % (4.2-6.5) 08/21/17 03:33 Calcium 9.4 mg/dl (8.6-10.4) 08/22/17 06:26 Phosphorus 3.8 mg/dL (2.5-4.5) 08/22/17 06:26 Magnesium 1.7 mg/dL (1.6-2.3) 08/22/17 06:26 Total Bilirubin 0.8 mg/dL (0.2-1.3) 08/22/17 06:26 GGT 81 U/L (8-78) H 08/21/17 03:33 AST 40 U/L (14-36) H D 08/22/17 06:26 ALT 54 U/L (9-52) H 08/22/17 06:26 Alkaline Phosphatase 107 U/L (38-126) 08/22/17 06:26 Troponin I 0.0130 ng/mL (0.00-0.120) 08/20/17 21:09 Total Protein 5.8 g/dL (6.3-8.3) L 08/22/17 06:26 Albumin 3.1 g/dL (3.5-5.0) L 08/22/17 06:26 Globulin 2.8 gm/dL (2.2-3.9) 08/22/17 06:26 Albumin/Globulin Ratio 1.1 (1.0-2.1) 08/22/17 06:26 Triglycerides 91 mg/dL (0-149) D 08/21/17 03:33 Cholesterol 97 mg/dL (0-199) 08/21/17 03:33 LDL Cholesterol Direct 53 mg/dL (0-129) 08/21/17 03:33 HDL Cholesterol 40 mg/dL (30-70) 08/21/17 03:33 Free T4 4.80 ng/dL (0.78-2.19) H 08/23/17 06:44 Thyroxine (T4) 19.9 ug/dL (5.5-11.0) H 08/23/17 08:05 Total T3 5.87 nmol/L (1.49-2.60) H 08/20/17 14:38 Thyroglobulin, Quant 223.7 ng/mL (2.8-40.9) H 08/21/17 03:33 TSH 3rd Generation < 0.02 mIU/L (0.46-4.68) L 08/22/17 06:26 Cortisol AM Sample 8.9 ug/dL (4.46-22.7) 08/21/17 03:33 Thyroperoxidase Ab 3 IU/mL (<9) 08/21/17 03:33 Thyroglobulin Antibody <1 IU/mL (< OR = 1) 08/21/17 03:33 Discharge Exam - Head Exam Head Exam: ATRAUMATIC, NORMAL INSPECTION Discharge Plan - Discharge Medications Prescriptions: Apixaban [Eliquis] 5 mg PO BID #60 tablet Propranolol [Inderal LA] 60 mg PO DAILY #30 cap Methimazole [Tapazole] 10 mg PO BID #120 tab - Follow Up Plan Condition: STABLE Disposition: HOME/ ROUTINE Instructions: Atrial Fibrillation (DC) Referrals: Naif Malhotra MD [Staff Provider] - Svetlana Mercer MD [Medical Doctor] - No Watson MD [Staff Provider] -
--- NOTE | 2017-08-23 23:02 | PN ---
ENDOCRINOLOGY FOLLOWUP LOCATION: ICU, room #9. SUBJECTIVE: This is a 66-year-old female with recent evaluation of overt hyperthyroidism, noted both historically, clinically, and by chemically with underlying diffuse toxic goiter with superweaning rapid atrial fibrillation and flutter and has since then improved clinically and hemodynamically as noted thereof. Her palpitations and progressive shortness of breath, chest pain on exertion has subsided at this time, hence sense of well being is noted. Her latest chemistry shows a BUN of 9, sodium 140, potassium 3.7, chloride 108, CO2 of 24, glucose 92, and creatinine 0.5. Her hemoglobin A1c is 5.6%. The latest thyroid study showed a T4 of 19.9 mcg/dL with a free T4 of 4.80 as noted. Her thyroglobulin level was 2 to 3.7 as expected which is quite elevated with the underlying hyperthyroid condition. The TSH level is less than 0.02. Her thyroid stimulating immunoglobulin is pending at this time and this will confirm the presence of underlying Grave's disease. She has improved hemodynamically with subsidence of the tachycardia which was present up until last night as noted. Her heart rate now has stabilized at 70 to 80 beats per minute, regular as noted. So for now, we will recommend for eventual discharge today, combination of Inderal LA given as 60 mg once daily in the evening as ordered. We will also lower the Tapazole to 20 mg p.o. b.i.d. after meals as given. We will titrate incrementally as indicated to optimize metabolic control. We will follow. Svetlana Mercer MD
[2017-08-24 18:51] LABS: TSI 442 % baseline (<140)
--- NOTE | 2017-08-25 22:22 | CARD ---
APPROVED REPORT EKG Measurement Heart [id number] <Conclusion> Atrial flutter with variable AV block Nonspecific T wave abnormality Abnormal ECG
== END 2017-08-23 12:13 | disposition home or self-care (01) | DRG 644 ==
LOC: C.ER 12:32 → C.5S 12:54 → C.9I 14:13
PROVIDERS: ADMIT Internal Medicine; ATTEND Internal Medicine
DX: E05.00 Thyrotoxicosis with diffuse goiter without thyrotoxic crisis or storm (principal); I48.92 Unspecified atrial flutter; I48.91 Unspecified atrial fibrillation; I10 Essential (primary) hypertension; E11.9 Type 2 diabetes mellitus without complications; E78.5 Hyperlipidemia, unspecified; E78.00 Pure hypercholesterolemia, unspecified; Z86.19 Personal history of other infectious and parasitic diseases

== ENCOUNTER 2019-01-13 09:43 | Outpatient (CLI) | payer OTHER | END 2019-01-13 09:44 | disposition home or self-care (01) | LOC: C.LAB 09:43 | DX: R63.4 Abnormal weight loss (principal); B18.8 Other chronic viral hepatitis; B19.20 Unspecified viral hepatitis C without hepatic coma ==

== ENCOUNTER 2019-01-13 09:49 | Outpatient (CLI) | payer OTHER | END 2019-01-13 09:50 | disposition home or self-care (01) | LOC: C.LAB 09:49 | DX: E11.65 Type 2 diabetes mellitus with hyperglycemia (principal); I10 Essential (primary) hypertension; E04.2 Nontoxic multinodular goiter; E78.2 Mixed hyperlipidemia ==